=== PATIENT | male | born 2000 | race Caucasian/White ===

== ENCOUNTER 2020-02-12 02:03 | Outpatient (CLI) | payer BC, SELFPAY ==
[2020-02-12 17:59] LABS: SARS-CoV-2 RNA PCR Negative
== END 2020-02-12 02:04 | disposition home or self-care (01) ==
LOC: ANHCOVIDDT 02:04
PROVIDERS: Visit Provider Otolaryngology
DX: Z01.812 Encounter for preprocedural laboratory examination (principal); Z20.828 Contact with and (suspected) exposure to other viral communicable diseases
CPT/HCPCS: 87635; C9803; U0003

== ENCOUNTER 2020-02-14 01:56 | Day surgery (SDC) | payer BC, SELFPAY ==
[2020-02-11 16:02] VITALS: BMI 31.2
[2020-02-14] VITALS (8 sets, daily range): BP systolic 124–146; BP diastolic 63–82; PULSE 52–85; RESP 15–20; TEMP 36.2–36.8; O2SAT 93–99
--- NOTE | 2020-02-14 08:51 | WPDANESEPPF ---
Anes - Initial Pre Proc Eval Procedure: Operation Date: 02/14/20 10:30 Proposed Procedures p Closed Reduction Nasal Fracture - Nickolas Mccann MD Date/Time: 02/14/20 08:51 Surgeon: Nickolas Mccann MD Pre Op Diagnosis: nasal fx Patient Data Age: 19 Gender: M Height: 6 ft 3 in Weight: 113.4 kg Allergies Allergy/AdvReac Type Severity Reaction Status Date / Time No Known Allergies Allergy Verified 02/14/20 07:27 Patient hx anesthesia problems: none Family hx anesthesia problems: none PMFSH Past Medical History Medical History (Updated 02/14/20 @ 08:51 by Poli Rodriguez MD) Overweight Surgical History Surgical History (Updated 02/14/20 @ 08:51 by Poli Rodriguez MD) Hx of tonsillectomy Social History Social History Smoking status: Never smoker Alcohol intake: never Substance use: never Substance use type: does not use Living arrangements: with family Spiritual care concerns: No Anes - Eval Final PreProcedure Day of Procedure 02/14/20 08:51 Patient weight: overweight Heart: regular rate and rhythm Lungs: clear to auscultation Airway: Mallampati scale class II Neurological: alert and oriented Last oral intake: >/= 8 hours ASA classification: II Emergent: no Anesthetic plan: proceed Anesthesia type and monitoring: general ETT and standard monitoring Informed Consent: The patient's anesthetic plan and its attendant risks and benefits were discussed with the patient/family/POA. Questions were solicited and answers provided to the satisfaction of the patient/family/POA.
[2020-02-14] MEDS: LACTATED RINGERS 1,000 ML 30 ML IV CONT (09:00)
[2020-02-14] MEDS: OXYMETAZOLINE HCL 0.05% NAS 15 ML BTL (*BKC) 1 SPRAY NASAL (09:17)
[2020-02-14] MEDS: ACETAMINOPHEN 500 MG TABLET 1000 MG PO (09:17)
--- NOTE | 2020-02-14 09:24 | WPDHPUPDATE1 ---
History and Physical Update Update Date/Time: 02/14/20 09:24 History and Physical has been reviewed, including an updated exam of the patient. There are NO changes in the patient's condition. Risks, benefits, and alternatives have been discussed and questions answered. Patient agrees to proceed with procedure.
[2020-02-14] MEDS: LIDO 1%/EPINEPHRINE 1:100,000 20 ML VIAL 3 ML INFILTRATE (09:44)
--- NOTE | 2020-02-14 09:57 | PM.PROC ---
Procedure Note - Detailed Date of procedure: 02/14/20 Pre-op diagnosis: nasal fx same Post-op diagnosis: same Procedure performed: closed reduction nasal bone fracture Description of procedure: After consent was obtained, pt brought to OR and placed under GETA. Timeout performed, draped for nasal fracture reduction. 1% lidocaine with 1:100k epi infiltrated into the soft tissues of the nose, bilateral infratrochlear nerve block performed. A boise elevator used to reduce fracture, bringing nasal bones back to the right, midline. This was successful and resulted in improved appearance of the nasal bones. He has a low left septal deviation that was not able to be addressed with this procedure and may require septoplasty at a later time. A trino nasal cast was fashioned and placed. The procedure was completed and he was extubated and transferred to PACU in stable condition without complication. Anesthesia: GETA Surgeon: Nickolas Mccann MD Estimated blood loss (mL): 5 Drains: No Packing: No Pathology: none sent Complications: No immediate complications Condition: stable Disposition: same day
[2020-02-14] MEDS: fentaNYL CITRATE INJ (*CRX) 100 MCG/2 ML VIAL 25 MCG IV PUSH ×2 (10:18→10:43)
== END 2020-02-14 11:47 | disposition home or self-care (01) ==
PROVIDERS: Visit Provider Otolaryngology
PROC: 0NSBXZZ Reposition Nasal Bone, External Approach (ICD-10-PCS; CPT 21315; principal; 2020-02-14 10:30)
DX: S02.2XXA Fracture of nasal bones, initial encounter for closed fracture (principal); X58.XXXA Exposure to other specified factors, initial encounter; Y93.67 Activity, basketball
CPT/HCPCS: 21320; A9270; J1100; J2250; J2405; J2704; J3010; J7120